=== PATIENT | female | born 1965 | race Caucasian/White ===

== ENCOUNTER 2021-11-27 23:22 | Emergency (ER) | payer OTHER, SELFPAY ==
--- NOTE | ~2021-11-27 | XR_ITS ---
EXAMINATION: LEFT HIP, LEFT SHOULDER, LEFT WRIST, LEFT ELBOW CLINICAL INFORMATION: Fall with pain COMPARISON: None TECHNIQUE: Single view pelvis with 2 additional views left hip, 3 views left wrist, 3 views left elbow, 4 views left shoulder FINDINGS: Pelvis and left hip: No pelvic fracture is seen. Some chronic calcifications are present adjacent to the greater trochanter which may be secondary to chronic bursitis. Some minimal degenerative changes are present in both hip joints as well as the SI joints. Left shoulder: No fracture or dislocation is seen. Small amount of calcification present in the supraspinatus tendon suggestive of tendinitis/tendinosis. Left elbow: No significant bone joint or soft tissue is seen. Left wrist: No significant bone, joint or soft tissue abnormality is seen. XR/XR elbow LT min 3V IMPRESSION: 1. No evidence of an acute traumatic osseous injury in the left shoulder, left elbow, left wrist or left hip. 2. Mild degenerative changes are present as described above
--- NOTE | ~2021-11-27 | XR_ITS ---
EXAMINATION: LEFT HIP, LEFT SHOULDER, LEFT WRIST, LEFT ELBOW CLINICAL INFORMATION: Fall with pain COMPARISON: None TECHNIQUE: Single view pelvis with 2 additional views left hip, 3 views left wrist, 3 views left elbow, 4 views left shoulder FINDINGS: Pelvis and left hip: No pelvic fracture is seen. Some chronic calcifications are present adjacent to the greater trochanter which may be secondary to chronic bursitis. Some minimal degenerative changes are present in both hip joints as well as the SI joints. Left shoulder: No fracture or dislocation is seen. Small amount of calcification present in the supraspinatus tendon suggestive of tendinitis/tendinosis. Left elbow: No significant bone joint or soft tissue is seen. Left wrist: No significant bone, joint or soft tissue abnormality is seen. XR/XR shoulder LT min 2V IMPRESSION: 1. No evidence of an acute traumatic osseous injury in the left shoulder, left elbow, left wrist or left hip. 2. Mild degenerative changes are present as described above
--- NOTE | ~2021-11-27 | XR_ITS ---
EXAMINATION: LEFT HIP, LEFT SHOULDER, LEFT WRIST, LEFT ELBOW CLINICAL INFORMATION: Fall with pain COMPARISON: None TECHNIQUE: Single view pelvis with 2 additional views left hip, 3 views left wrist, 3 views left elbow, 4 views left shoulder FINDINGS: Pelvis and left hip: No pelvic fracture is seen. Some chronic calcifications are present adjacent to the greater trochanter which may be secondary to chronic bursitis. Some minimal degenerative changes are present in both hip joints as well as the SI joints. Left shoulder: No fracture or dislocation is seen. Small amount of calcification present in the supraspinatus tendon suggestive of tendinitis/tendinosis. Left elbow: No significant bone joint or soft tissue is seen. Left wrist: No significant bone, joint or soft tissue abnormality is seen. XR/XR hip LT min 2V IMPRESSION: 1. No evidence of an acute traumatic osseous injury in the left shoulder, left elbow, left wrist or left hip. 2. Mild degenerative changes are present as described above
--- NOTE | ~2021-11-27 | XR_ITS ---
EXAMINATION: LEFT HIP, LEFT SHOULDER, LEFT WRIST, LEFT ELBOW CLINICAL INFORMATION: Fall with pain COMPARISON: None TECHNIQUE: Single view pelvis with 2 additional views left hip, 3 views left wrist, 3 views left elbow, 4 views left shoulder FINDINGS: Pelvis and left hip: No pelvic fracture is seen. Some chronic calcifications are present adjacent to the greater trochanter which may be secondary to chronic bursitis. Some minimal degenerative changes are present in both hip joints as well as the SI joints. Left shoulder: No fracture or dislocation is seen. Small amount of calcification present in the supraspinatus tendon suggestive of tendinitis/tendinosis. Left elbow: No significant bone joint or soft tissue is seen. Left wrist: No significant bone, joint or soft tissue abnormality is seen. XR/XR wrist LT min 3V IMPRESSION: 1. No evidence of an acute traumatic osseous injury in the left shoulder, left elbow, left wrist or left hip. 2. Mild degenerative changes are present as described above
[2021-11-27 23:25] VITALS: BP 128/71; PULSE 86; RESP 18; TEMP 36.7; O2SAT 98; BMI 45.5
[2021-11-28 00:33] VITALS: BP 197/63; PULSE 84; RESP 17; TEMP 37.1; O2SAT 96
--- NOTE | 2021-11-28 00:35 | ED.FALL ---
HPI - Fall General Chief Complaint: Fall Stated Complaint: fall Time Seen by Provider: 11/28/21 00:28 Source: patient Mode of arrival: ambulatory Limitations: no limitations History of Present Illness HPI Narrative: Go patient was coming out of the car slipped on the ice on the parking lot fell landed on her left hip complaining of pain left hip and left shoulder left arm area no significant head injury no loss of consciousness patient ambulatory otherwise MD complaint: fall Related Data Previous Rx's Medication Instructions Recorded ibuprofen 600 mg tablet 600 mg PO Q6H PRN #20 tab 11/28/21 Allergies Allergy/AdvReac Type Severity Reaction Status Date / Time pseudoephedrine Allergy Intermediate Palpitation Verified 11/27/21 23:25 [From Shi] s strawberry Allergy Mild Hives Verified 11/27/21 23:25 Review of Systems Review of Systems: Yes all other systems are reviewed and are negative [facility] Social History Social History Advance Directives: No Advance Directives Information Provided: Yes Physical Exam Vital Signs: Vital Signs: Last Vital Signs Temp 98.7 F 11/28/21 00:33 Pulse 84 11/28/21 00:33 Resp 17 11/28/21 00:33 BP 197/63 H 11/28/21 00:33 Pulse Ox 96 11/28/21 00:33 BMI result Body Mass Index 45.5 Appearance: Alert. Oriented X3. No acute distress. Eyes: PERRLA, No Nystagmus HEENT: Pharynx normal. Oral Mucosa moist atraumatic normocephalic Neck: Normal inspection. Neck supple. No midline tenderness CVS: Normal heart rate and rhythm. Pulses normal. Respiratory: No respiratory distress. Equal air entry bilateral, no wheezing/rales/rhonchi Abdomen: Soft and nontender. Bowel sounds are present, no mass palpable, no CVA tenderness Skin: Skin warm and dry. Normal skin color. Normal skin turgor. Extremities: No lower extremity edema. No calf tenderness diffuse soft tissue tenderness left hip good range of movement subtraction the left shoulder with good range of movement Neuro: Oriented X 3. No motor deficit. No sensory deficit.No cerebellar signs , cranial nerves II-XII intact Extrem: Shoulder/upper arm images: 1. Mild soft tissue tenderness with good range of movement Upper/lower leg/hip images: 1. Soft tissue tenderness left hip good range of movement no bony tenderness Discharge Plan Discharge Clinical Impression: Contusion of left hip Patient Disposition: Home, Self-Care Instructions: Hip Contusion (ED) Additional Instructions: Tylenol/ibuprofen for pain X-ray negative for fracture Report the ED/PCP if pain continues Prescriptions: New ibuprofen 600 mg tablet 600 mg PO Q6H PRN (Reason: pain) Qty: 20 0RF
[2021-11-28] MEDS: Ibuprofen 800 MG TABLET PO (00:51)
== END 2021-11-28 00:50 | disposition home or self-care (01) ==
PROVIDERS: Emergency Provider Internal Medicine; PCP Nurse Practitioner Adult Health
DX: S70.02XA Contusion of left hip, initial encounter (principal); W00.0XXA Fall on same level due to ice and snow, initial encounter; M25.512 Pain in left shoulder; Y93.89 Activity, other specified; Y92.481 Parking lot as the place of occurrence of the external cause; Y99.0 Civilian activity done for income or pay
CPT/HCPCS: 73030; 73080; 73110; 73502; 99284